=== PATIENT | male | born 1990 | race Caucasian/White ===

== ENCOUNTER 2017-05-14 22:12 | Inpatient (IN) | payer MEDICAID, OTHER ==
[~2017-05-14] VITALS: Ht 165.1 cm; Wt 68.0 kg
[2017-05-14] MEDS ORDERED: morphine 4 MG/ML VIAL IV STA (23:55)
[2017-05-14] MEDS ORDERED: ONDANSETRON 4 MG INJ IV STA (23:55)
[2017-05-15] VITALS (9 sets, daily range): BP systolic 124–224; BP diastolic 89–122; PULSE 98–109; RESP 19; Ht 165.1 cm; Wt 68.0 kg
[2017-05-15] MEDS ORDERED: DIPHENHYDRAMINE 50 MG INJ IV ONE
[2017-05-15 00:04] LABS: BASOPHIL # 0.1 10^3/ul (0.0-0.1); BASOPHILS % 0.4 % (0.0-2.0); EOSINOPHILS # 0.4 10^3/ul (0.0-0.5); EOSINOPHILS % 2.7 % (0.0-7.0); HEMATOCRIT 27.4 % (42.0-52.0); HEMOGLOBIN 8.7 g/dl (14.0-18.0); LYMPHOCYTES # 2.5 10^3/ul (0.8-2.9); LYMPHOCYTES % 18.5 % (15.0-51.0); MEAN CORPUSCULAR HEMOGLOBIN 30.2 pg (29.0-33.0); MEAN CORPUSCULAR HGB CONC 31.8 g/dl (32.0-37.0); MEAN CORPUSCULAR VOLUME 95.1 fl (82.0-101.0); MEAN PLATELET VOLUME 10.4 fl (7.4-10.4); MONOCYTE # 0.9 10^3/ul (0.3-0.9); MONOCYTES % 6.7 % (0.0-11.0); NEUTROPHIL # 9.7 10^3/ul (1.6-7.5); NEUTROPHILS % 71.3 % (39.0-77.0); PLATELET COUNT 174 10^3/UL (140-415); RED BLOOD COUNT 2.88 10^6/ul (4.70-6.10); RED CELL DISTRIBUTION WIDTH 20.4 % (11.5-14.5); WHITE BLOOD COUNT 13.6 10^3/ul (4.8-10.8)
[2017-05-15 00:21] LABS: ALANINE AMINOTRANSFERASE 107 IU/L (13-69); ALBUMIN 3.3 g/dl (3.3-4.9); ALKALINE PHOSPHATASE 124 IU/L (42-121); ANION GAP 20 (8-16); ASPARTATE AMINO TRANSFERASE 42 IU/L (15-46); BILIRUBIN,INDIRECT 0.2 mg/dl (0-1.1); BILIRUBIN,TOTAL 0.2 mg/dl (0.2-1.3); BLOOD UREA NITROGEN 84 mg/dl (7-20); CARBON DIOXIDE 24 mmol/L (21-31); CHLORIDE 98 mmol/L (97-110); CREATININE 11.13 mg/dl (0.61-1.24); GLUCOSE 82 mg/dl (70-220); POTASSIUM 4.9 mmol/L (3.5-5.1); SODIUM 137 mmol/L (135-144); TOTAL PROTEIN 6.3 g/dl (6.1-8.1)
--- NOTE | 2017-05-15 00:37 | RADRPT ---
PROCEDURE: XR Chest. CLINICAL INDICATION: Chest Pain. TECHNIQUE: Single frontal view of the chest was obtained. COMPARISON: None available FINDINGS: The cardiomediastinal silhouette is moderate to severely enlarged.. Pulmonary vasculature is promin ent. There is patchy air space opacities through both lungs.. No signs of pleural fluid or pneumothorax are seen. The osseous structures and soft tissues are unre markable. IMPRESSION: 1. Moderate to severe appearing cardiomegaly, prominent for the patient's age. 2. Pulmonary vascular congestion. 3. Bilateral patchy air space opacities which may reflect a mild to moderate pulmonary edema, or bi lateral infiltrates. RPTAT: HBST .Tay Augustine MD, Date Time Electronically viewed and signed by .Tay Augustine MD, on 05/15/2017 00:36 .T/
[2017-05-15 00:51] LABS: B-TYPE NATRIURETIC PEPTIDE > 175000 PG/ML (0-125)
[2017-05-15 01:36] LABS: TROPONIN-I 0.145 ng/ml (0.00-0.12)
--- NOTE | 2017-05-15 03:44 | ERA ---
ER Documentation Chief Complaint Date/Time DATE: 05/15/17 TIME: 03:36 Chief Complaint BL leg swelling, hd pt, noted talking to himself, unsure when last hd was HPI This is a 26-year-old male bilateral leg swelling. Patient is end-stage renal disease on hemodialysis. He is unsure when his last hemodialysis was. Complains of shortness of breath as well. Shortness breath is mild to moderate in intensity has been going on for the last 2-3 days getting increase in severity correlating with the lower extremity swelling is also complaining of. No nausea no vomiting no fevers no chills. No other current complaints. ROS All systems reviewed and are negative except as per history of present illness. Medications Home Meds No Active Prescriptions or Reported Meds Allergies Allergies: Coded Allergies: clindamycin (Verified Allergy, Unknown, 05/14/17) PMhx/Soc Hx Alcohol Use: No (pt denies) Hx Substance Use: No (pt denies) Hx Tobacco Use: No (pt denies) Smoking Status: Never smoker Physical Exam Vitals Vital Signs Date Time Temp Pulse Resp B/P Pulse Ox O2 Delivery O2 Flow Rate FiO2 05/14/17 22:16 99.0 104 20 174/109 94 Physical Exam Const: [] Head: Atraumatic Eyes: Normal Conjunctiva ENT: Normal External Ears, Nose and Mouth. Neck: Full range of motion..~ No meningismus. Resp: Clear to auscultation bilaterally Cardio: Regular rate and rhythm, no murmurs Abd: Soft, non tender, non distended. Normal bowel sounds Skin: No petechiae or rashes Back: No midline or flank tenderness Ext: No cyanosis, or edema Neur: Awake and alert Psych: Normal Mood and Affect Result Diagram: 05/14/17 2345 05/14/17 2345 Results 24 hrs Laboratory Tests Test 05/14/17 23:45 White Blood Count 13.610^3/ul Red Blood Count 2.8810^6/ul Hemoglobin 8.7g/dl Hematocrit 27.4% Mean Corpuscular Volume 95.1fl Mean Corpuscular Hemoglobin 30.2pg Mean Corpuscular Hemoglobin Concent 31.8g/dl Red Cell Distribution Width 20.4% Platelet Count 82573^3/UL Mean Platelet Volume 10.4fl Neutrophils % 71.3% Lymphocytes % 18.5% Monocytes % 6.7% Eosinophils % 2.7% Basophils % 0.4% Nucleated Red Blood Cells % 0.0/100WBC Neutrophils # 9.710^3/ul Lymphocytes # 2.510^3/ul Monocytes # 0.910^3/ul Eosinophils # 0.410^3/ul Basophils # 0.110^3/ul Nucleated Red Blood Cells # 0.010^3/ul Sodium Level 137mmol/L Potassium Level 4.9mmol/L Chloride Level 98mmol/L Carbon Dioxide Level 24mmol/L Anion Gap 20 Blood Urea Nitrogen 84mg/dl Creatinine 11.13mg/dl Glucose Level 82mg/dl Calcium Level 9.0mg/dl Total Bilirubin 0.2mg/dl Direct Bilirubin 0.00mg/dl Indirect Bilirubin 0.2mg/dl Aspartate Amino Transf (AST/SGOT) 42IU/L Alanine Aminotransferase (ALT/SGPT) 107IU/L Alkaline Phosphatase 124IU/L Troponin I 0.145ng/ml B-Type Natriuretic Peptide > 914142LN/ML Total Protein 6.3g/dl Albumin 3.3g/dl Globulin 3.00g/dl Albumin/Globulin Ratio 1.10 Current Medications Medications (Trade) Dose Ordered Sig/Dexter Route PRN Reason Start Time Stop Time Status Last Admin Dose Admin Morphine Sulfate (morphine) 4 mg ONCE STAT IV 05/14/17 23:55 05/14/17 23:57 DC 05/15/17 00:00 Ondansetron HCl (Zofran Inj) 4 mg ONCE STAT IV 05/14/17 23:55 05/14/17 23:57 DC 05/15/17 00:00 Diphenhydramine HCl (Benadryl) 50 mg ONCE ONCE IV 05/15/17 00:00 05/15/17 00:01 DC 05/15/17 00:00 Procedures/MDM EKG: Rate/Rhythm: [Normal Sinus Rhythm] QRS, ST, T-waves: [No changes consistent w/ acute ischemia] Impression: [No evidence of ischemia or arrhythmia] Chest X-ray 1V Interpreted by me: Soft Tissue: No acute abnormalities Bones: No acute abnormalities Mediastinum/Cardiac Silhouette/Lungs: [No acute abnormalities] Patient's symptoms are concerning for cardiac cause will require inpatient workup and continuous monitoring. Further w/u for ischemia, arrhythmia, PE or dissection will be deferred to the inpatient team. Troponin is mildly positive , however the patient does have severely elevated creatinine making this a likely cause. Accepting Care Team: Current data and ongoing care discussed. Time: 3:30 AM Primary Provider: Hospitalists Consulting: [XOXOXO] Outstanding Data: none Departure Diagnosis: Primary Impression: NSTEMI (non-ST elevated myocardial infarction) Condition: Serious KEZIA RAY May 15, 2017 03:44
[2017-05-15] MEDS ORDERED: NACL 0.9% 3 ML SYG IV SCH (05:00)
[2017-05-15] MEDS ORDERED: ALBUTEROL/IPRATROPIUM (NEB) 3 ML AMP HHN PRN (05:00)
[2017-05-15] MEDS ORDERED: ACETAMINOPHEN 325 MG TAB PO PRN (05:00)
[2017-05-15] MEDS ORDERED: morphine 2 MG INJ IV PRN (05:00)
[2017-05-15] MEDS ORDERED: ONDANSETRON 4 MG INJ IV PRN (05:00)
[2017-05-15] MEDS ORDERED: hydrALAzine 20 MG INJ IV STA (05:20)
[2017-05-15] MEDS ORDERED: hydrALAzine 20 MG INJ ONE (05:26)
[2017-05-15] MEDS ORDERED: hydrALAzine 20 MG INJ IV PRN (05:30)
[2017-05-15 07:17] LABS: BASOPHILS % 0.3 % (0.0-2.0); EOSINOPHILS # 0.4 10^3/ul (0.0-0.5); HEMATOCRIT 26.9 % (42.0-52.0); HEMOGLOBIN 8.5 g/dl (14.0-18.0); LYMPHOCYTES # 2.2 10^3/ul (0.8-2.9); LYMPHOCYTES % 17.6 % (15.0-51.0); MEAN CORPUSCULAR HEMOGLOBIN 29.9 pg (29.0-33.0); MEAN CORPUSCULAR HGB CONC 31.6 g/dl (32.0-37.0); MEAN CORPUSCULAR VOLUME 94.7 fl (82.0-101.0); MEAN PLATELET VOLUME 10.4 fl (7.4-10.4); MONOCYTE # 0.8 10^3/ul (0.3-0.9); MONOCYTES % 6.1 % (0.0-11.0); NEUTROPHIL # 9.1 10^3/ul (1.6-7.5); NEUTROPHILS % 72.5 % (39.0-77.0); PLATELET COUNT 187 10^3/UL (140-415); RED BLOOD COUNT 2.84 10^6/ul (4.70-6.10); RED CELL DISTRIBUTION WIDTH 20.8 % (11.5-14.5); WHITE BLOOD COUNT 12.6 10^3/ul (4.8-10.8)
[2017-05-15 07:35] LABS: ALBUMIN 3.4 g/dl (3.3-4.9); ALBUMIN/GLOBULIN RATIO 1.09; BILIRUBIN,INDIRECT 0.3 mg/dl (0-1.1); BILIRUBIN,TOTAL 0.3 mg/dl (0.2-1.3); CALCIUM 9.1 mg/dl (8.4-10.2); CHOL/HDL RATIO 4.3 RATIO; CREATININE 11.49 mg/dl (0.61-1.24); MAGNESIUM 2.3 mg/dl (1.7-2.5); POTASSIUM 5.3 mmol/L (3.5-5.1); TOTAL PROTEIN 6.5 g/dl (6.1-8.1)
[2017-05-15] MEDS: HEPARIN 5,000 UNIT/0.5 ML VIAL SC SCH ×2 (08:05→21:00)
[2017-05-15] MEDS ORDERED: LORAZEPAM 2 MG INJ IV ONE (08:30)
--- NOTE | 2017-05-15 09:42 | HP ---
Date/Time of Note Date/Time of Note DATE: 05/15/17 TIME: 09:34 Assessment/Plan VTE Prophylaxis VTE Prophylaxis Intervention: SCD's Lines/Catheters IV Catheter Type (from Nrs): Saline Lock Assessment/Plan Assessment/Plan 1. Volume overload state -Patient with history of ESRD on HD. Plan is to place a consult with nephrology for dialysis -Breathing treatments as needed -2D echo 2. ESRD on HD -See #1 3. Positive troponin -Likely demand ischemia, exacerbated by end-stage renal disease -We will trend troponin 4. SIRS -Likely stress reaction -Infectious workup as needed 5. Anemia, likely of chronic disease -Monitor H&H and transfuse as needed -Check for iron deficiency HPI/ROS Admit Date/Time Admit Date/Time Hx of Present Illness This is a 26-year-old male with a history of hypertension and end-stage renal disease on dialysis who presents to the emergency department complaining of lower extremity swelling, cough and shortness of breath. Patient appears disheveled and is not fully cooperative when answering questions. He stated that he does not remember the last time he had dialysis. But he reported being admitted to an outside hospital and is being discharged a few days ago. When he presented to the ER, BP was 175/109 with a heart rate of 104. Labs shows, WBC 13.6, hemoglobin 8.7, BUN 84, creatinine 11, BNP 175,000. First troponin is 0.145. Chest x-ray showed Moderate to severe appearing cardiomegaly , prominent for the patient's age, Pulmonary vascular congestion and Bilateral patchy air space opacities which may reflect a mild to moderate pulmonary edema , or bilateral infiltrates. PMH/Family/Social Social History Smoking Status: Never smoker Exam/Review of Systems Vital Signs Vitals Vital Signs Date Time Temp Pulse Resp B/P Pulse Ox O2 Delivery O2 Flow Rate FiO2 05/15/17 09:03 112 20 176/81 98 Mask 4.0 05/14/17 22:16 99.0 Labs Result Diagram: 05/15/1744 05/15/17643 Medications Medications Current Medications Ondansetron HCl (Zofran Inj) 4 mg Q6H PRN IV NAUSEA AND/OR VOMITING; Start at 05:00 Acetaminophen (Tylenol Tab) 650 mg Q6H PRN PO PAIN LEVEL 1-3 OR FEVER; Start at 05:00 Morphine Sulfate (morphine) 2 mg Q4H PRN IV PAIN LEVEL 7-10 Last administered on 05/15/17t 05:28; Admin Dose 2 MG; Start 05/15/17 at 05:00 Heparin Sodium (Porcine) (Heparin (5000 Units/0.5 ml)) 5,000 unit Q12 SC ; Start 05/15/17 at 09:00 Hydralazine HCl (Apresoline) 10 mg Q4 PRN IV ELEVATED SYSTOLIC BP; Start at 05:30 KEZIA NICHOLAS MD May 15, 2017 09:41
[2017-05-15] MEDS ORDERED: AMLODIPINE 10 MG TAB PO SCH (10:00)
[2017-05-15 11:42] LABS: CK-MB 4.3 ng/ml (0.0-2.4); TROPONIN-I 0.145 ng/ml (0.00-0.12)
[2017-05-15] MEDS: METOPROLOL 25 MG TAB PO SCH ×2 (11:53→21:30)
[2017-05-15 16:08] LABS: CK-MB 4.1 ng/ml (0.0-2.4); TROPONIN-I 0.133 ng/ml (0.00-0.12)
--- NOTE | 2017-05-15 18:57 | PDOCDIS ---
Discharge Instructions CONDITION Patient Condition: Good HOME CARE INSTRUCTIONS: Special Diet: Renal ACTIVITY: Activity Restrictions: No Restrictions FOLLOW UP/APPOINTMENTS Follow-up Plan F/U WITH YOUR PCP IN 1-2 WEEKS, F/U WITH YOUR HD CENTER SCHEDULED JACK HARDIN May 15, 2017 18:57
--- NOTE | 2017-05-15 19:12 | DS ---
Date/Time of Note Date/Time of Note DATE: 05/15/17 TIME: 19:08 Discharge Summary Admission/Discharge Info Admit Date/Time May 15, 2017 at 02:34 Discharge Date/Time May 15, 2017 Discharge Diagnosis 1. Volume overload state -Resolved with HD 2. ESRD on HD -Continue HD as scheduled 3. Positive troponin -Likely demand ischemia, exacerbated by end-stage renal disease, false positive -We will trend troponin 4. SIRS -Likely stress reaction 5. Anemia secondary to end-stage renal disease -Follow-up with [employer] Patient Condition: Good Hospital Course Patient is a 26-year-old male with a history of hypertension and end-stage renal disease on dialysis who presents to the emergency department complaining of lower extremity swelling, cough and shortness of breath. Patient has been noncompliant with his hemodialysis center, in the ED BP was elevated and chest x -ray showed pulmonary edema. Troponins are mildly elevated felt to be a false positive secondary to his renal disease and mild demand, white count also slightly elevated but patient has no evidence of infection is likely reactive. Patient did receive hemodialysis while in house, his shortness of breath and fluid overload did resolve, and the discharge patient's vitals labs and physical exam are stable and no further acute complaints and questions are answered. Home Meds No Active Prescriptions or Reported Meds Follow-up Plan F/U WITH YOUR PCP IN 1-2 WEEKS, F/U WITH YOUR HD CENTER SCHEDULED Primary Care Provider Care Physician No Primary Time spent on discharge: > 30 minutes JACK HARDIN May 15, 2017 19:12
--- NOTE | 2017-05-15 19:25 | CONS ---
Date/Time of Note Date/Time of Note DATE: 05/15/17 TIME: 19:23 Assessment/Plan Assessment/Plan Additional Assessment/Plan 26 yo male with 1) Volume Overload 2) HTN, Chronic 3) ESRD on HD 4) Anemia, Chronic, CKD 5) Hyperkalemia Consultation Date/Type/Reason Admit Date/Time Date of Consultation: May 15, 2017 Type of Consultation: Renal Reason for Consultation ESRD Referring Provider: JACK HARDIN Social History Smoking Status: Never smoker Exam/Review of Systems Vital Signs Vitals Vital Signs Date Time Temp Pulse Resp B/P Pulse Ox O2 Delivery O2 Flow Rate FiO2 05/15/17 18:50 100 20 05/15/17 16:15 97.5 172/122 91 05/15/17 13:45 Room Air 05/15/17 11:55 4.0 Exam Constitutional: alert, No distress ENMT: mucosa pink and moist Neck: No jvd Respiratory: clear to auscultation, No diminished breath sounds, No labored breathing Cardiovascular: regular rate and rhythm, No edema Gastrointestinal: soft, No rebound or guarding Neurological: No lethargic Skin: nl turgor, No diaphoresis Results Result Diagram: 05/15/17 0644 05/15/17 0644 Results 24 hrs Laboratory Tests Test 05/14/17 23:45 05/15/17 06:44 05/15/17 10:44 05/15/17 15:23 White Blood Count 13.6 H 12.6 H Red Blood Count 2.88 L 2.84 L Hemoglobin 8.7 L 8.5 L Hematocrit 27.4 L 26.9 L Mean Corpuscular Volume 95.1 94.7 Mean Corpuscular Hemoglobin 30.2 29.9 Mean Corpuscular Hemoglobin Concent 31.8 L 31.6 L Red Cell Distribution Width 20.4 H 20.8 H Platelet Count 174 187 Mean Platelet Volume 10.4 10.4 Neutrophils % 71.3 72.5 Lymphocytes % 18.5 17.6 Monocytes % 6.7 6.1 Eosinophils % 2.7 3.0 Basophils % 0.4 0.3 Nucleated Red Blood Cells % 0.0 0.0 Neutrophils # 9.7 H 9.1 H Lymphocytes # 2.5 2.2 Monocytes # 0.9 0.8 Eosinophils # 0.4 0.4 Basophils # 0.1 0.0 Nucleated Red Blood Cells # 0.0 0.0 Sodium Level 137 136 Potassium Level 4.9 5.3 H Chloride Level 98 99 Carbon Dioxide Level 24 21 Anion Gap 20 H 21 H Blood Urea Nitrogen 84 H 86 H Creatinine 11.13 H 11.49 H Glucose Level 82 85 Calcium Level 9.0 9.1 Total Bilirubin 0.2 0.3 Direct Bilirubin 0.00 0.00 Indirect Bilirubin 0.2 0.3 Aspartate Amino Transf (AST/SGOT) 42 49 H Alanine Aminotransferase (ALT/SGPT) 107 H 111 H Alkaline Phosphatase 124 H 121 Troponin I 0.145 *H 0.145 *H 0.133 *H B-Type Natriuretic Peptide > 117062 H Total Protein 6.3 6.5 Albumin 3.3 3.4 Globulin 3.00 3.10 Albumin/Globulin Ratio 1.10 1.09 Hemoglobin A1c 4.8 Magnesium Level 2.3 Triglycerides Level 166 H Cholesterol Level 112 LDL Cholesterol, Calculated 53 HDL Cholesterol 26 L Cholesterol/HDL Ratio 4.3 Creatine Kinase 93 85 Creatine Kinase Index 4.6 4.8 Creatinine Kinase MB (Mass) 4.30 H 4.10 H Imaging Free Text/Dictation PROCEDURE: XR Chest. CLINICAL INDICATION: Chest Pain. TECHNIQUE: Single frontal view of the chest was obtained. COMPARISON: None available FINDINGS: The cardiomediastinal silhouette is moderate to severely enlarged.. Pulmonary vasculature is prominent. There is patchy air space opacities through both lungs.. No signs of pleural fluid or pneumothorax are seen. The osseous structures and soft tissues are unremarkable. IMPRESSION: 1. Moderate to severe appearing cardiomegaly, prominent for the patient's age. 2. Pulmonary vascular congestion. 3. Bilateral patchy air space opacities which may reflect a mild to moderate pulmonary edema, or bilateral infiltrates. RPTAT: HBST .Tay Augustine MD, MD Date Time Electronically viewed and signed by .Tay Augustine MD, MD on 05/15/2017 00:36 Medications Medications Current Medications Ondansetron HCl (Zofran Inj) 4 mg Q6H PRN IV NAUSEA AND/OR VOMITING; Start at 05:00 Acetaminophen (Tylenol Tab) 650 mg Q6H PRN PO PAIN LEVEL 1-3 OR FEVER; Start at 05:00 Morphine Sulfate (morphine) 2 mg Q4H PRN IV PAIN LEVEL 7-10 Last administered on 05/15/17 05:28; Admin Dose 2 MG; Start 05/15/17 at 05:00 Heparin Sodium (Porcine) (Heparin (5000 Units/0.5 ml)) 5,000 unit Q12 SC ; Start 05/15/17 at 09:00 Hydralazine HCl (Apresoline) 10 mg Q4 PRN IV ELEVATED SYSTOLIC BP; Start at 05:30 Metoprolol Tartrate (Lopressor) 25 mg Q12 PO Last administered on 05/15/17 11: 53; Admin Dose 25 MG; Start 05/15/17 at 10:00 Amlodipine Besylate (Norvasc) 10 mg DAILY PO Last administered on 05/15/17 11: 54; Admin Dose 10 MG; Start 05/15/17 at 10:00 Influenza Virus Vaccine (Fluzone) 0.5 ml ONCE ONCE IM* ; Start 05/15/17 at 22:00 ; Stop 05/15/17 at 22:01 KATHY FLETCHER MD May 15, 2017 19:25
[2017-05-15] MEDS ORDERED: INFLUENZA VIRUS VACCINE 0.5 ML SYG IM* ONE (22:00)
== END 2017-05-15 21:15 | disposition home or self-care (01) | DRG 640 ==
LOC: E/R 22:12 → MS4 05-15 02:34
PROVIDERS: ADMIT Internal Medicine; ATTEND Internal Medicine
PROC: 5A1D00Z (ICD-10-PCS; principal; 2017-05-15)
DX: E87.79 Other fluid overload (principal); N18.6 End stage renal disease; I12.0 Hypertensive chronic kidney disease with stage 5 chronic kidney disease or end stage renal disease; R65.10 Systemic inflammatory response syndrome (SIRS) of non-infectious origin without acute organ dysfunction; Z99.2 Dependence on renal dialysis; Z91.15 Patient's noncompliance with renal dialysis; D63.8 Anemia in other chronic diseases classified elsewhere; E87.5 Hyperkalemia
CPT/HCPCS: 36415; 71010; 80053; 80061; 82550; 82553; 83036; 83735; 83880; 84484; 85025; 90686; 90935; 93005; 96374; 96375; J0360; J1200; J2060; J2270; J2405

== ENCOUNTER 2017-05-16 13:26 | Emergency (ER) | payer MEDICAID ==
[~2017-05-16] VITALS: Ht 175.3 cm; Wt 65.0 kg
[2017-05-16 13:29] VITALS: Ht 175.3 cm; Wt 65.0 kg
--- NOTE | 2017-05-16 14:44 | ERA ---
ER Documentation Chief Complaint Date/Time DATE: 05/16/17 TIME: 14:44 Chief Complaint nausea and vomiting this morning, hx renal failure, homeless. HPI The patient is a 26-year-old male, presenting to the ER because of vomiting, diarrhea for 1 day. He was admitted yesterday for acute fluid overload and only had half an hour of dialysis out of his regular 3 hours. He denied dyspnea , chest pain, abdominal pain, denies hematemesis, hematochezia. He is homeless , does not smoke, does not drink Past medical history: Chronic kidney disease on hemodialysis 3 times a week, hypertension, asthma Past surgical history: Left upper extremity AV fistula ROS All systems reviewed and are negative except as per history of present illness. Medications Home Meds No Active Prescriptions or Reported Meds Allergies Allergies: Coded Allergies: clindamycin (Verified Allergy, Unknown, 05/16/17) PMhx/Soc History of Surgery: Yes (fistula placement) Anesthesia Reaction: No Hx Neurological Disorder: No Hx Respiratory Disorders: No Hx Cardiac Disorders: No Hx Psychiatric Problems: No Hx Miscellaneous Medical Probl: No Hx Alcohol Use: No Hx Substance Use: No Hx Tobacco Use: No Physical Exam Vitals Vital Signs Date Time Temp Pulse Resp B/P Pulse Ox O2 Delivery O2 Flow Rate FiO2 05/16/17 16:00 98.5 79 18 162/98 97 Room Air 05/16/17 13:29 98.1 88 16 168/100 98 Physical Exam Const: No acute distress. Head: Atraumatic. Eyes: Normal Conjunctiva. ENT: Normal External Ears, Nose and Mouth. Neck: Full range of motion. No meningismus. Resp: Clear to auscultation bilaterally. Cardio: Regular rate and rhythm. Abd: Soft, non distended, normal bowel sounds, non tender. Skin: No petechiae or rashes. Back: No midline or flank tenderness. Ext: No cyanosis, or edema. Neur: Awake and alert. No focal deficit Psych: Normal Mood and Affect. Result Diagram: 05/16/17 1630 05/16/17 1630 Results 24 hrs Laboratory Tests Test 05/16/17 16:30 White Blood Count 10.610^3/ul Red Blood Count 2.7610^6/ul Hemoglobin 8.4g/dl Hematocrit 26.3% Mean Corpuscular Volume 95.3fl Mean Corpuscular Hemoglobin 30.4pg Mean Corpuscular Hemoglobin Concent 31.9g/dl Red Cell Distribution Width 21.1% Platelet Count 70638^3/UL Mean Platelet Volume 10.0fl Neutrophils % 71.2% Lymphocytes % 19.9% Monocytes % 6.7% Eosinophils % 1.2% Basophils % 0.5% Nucleated Red Blood Cells % 0.0/100WBC Neutrophils # 7.610^3/ul Lymphocytes # 2.110^3/ul Monocytes # 0.710^3/ul Eosinophils # 0.110^3/ul Basophils # 0.110^3/ul Nucleated Red Blood Cells # 0.010^3/ul Prothrombin Time 15.4Sec Prothrombin Time Ratio 1.2 INR International Normalized Ratio 1.21 Activated Partial Thromboplast Time 33.2Sec Sodium Level 133mmol/L Potassium Level 6.4mmol/L Chloride Level 98mmol/L Carbon Dioxide Level 20mmol/L Anion Gap 21 Blood Urea Nitrogen 92mg/dl Creatinine 11.17mg/dl Glucose Level 92mg/dl Calcium Level 8.8mg/dl Phosphorus Level 10.5mg/dl Magnesium Level 2.4mg/dl Total Bilirubin 0.4mg/dl Direct Bilirubin 0.00mg/dl Indirect Bilirubin 0.4mg/dl Aspartate Amino Transf (AST/SGOT) 49IU/L Alanine Aminotransferase (ALT/SGPT) 101IU/L Alkaline Phosphatase 116IU/L Troponin I 0.137ng/ml Total Protein 6.1g/dl Albumin 3.3g/dl Globulin 2.80g/dl Albumin/Globulin Ratio 1.17 Hepatitis B Surface Antigen NEGATIVE Hepatitis B Core Total Antibody NEGATIVE Hepatitis C Antibody REACTIVE Current Medications Medications (Trade) Dose Ordered Sig/Dexter Route PRN Reason Start Time Stop Time Status Last Admin Dose Admin Ondansetron HCl (Zofran Inj) 4 mg ONCE STAT IV 05/16/17 14:53 05/16/17 14:54 Cancel Ondansetron HCl (Zofran Inj) 4 mg ONCE STAT IV 05/16/17 14:53 05/16/17 14:58 DC Loperamide HCl (Imodium Cap) 4 mg ONCE ONCE PO 05/16/17 15:00 05/16/17 15:01 DC Ondansetron HCl (Zofran Odt) 4 mg ONCE STAT ODT 05/16/17 16:39 05/16/17 16:48 DC Procedures/MDM [place] [address] Radiology Main Line: [phone] DIAGNOSTIC IMAGING REPORT Patient: DEB LEA : 1990 Age: 26 Sex: M MR #: [id number] DOS: 05/16/17 1453 Ordering MD: FE NEWMAN MD Location: E/R Room/Bed: PROCEDURE: Chest x-ray CLINICAL INDICATION: Shortness of breath TECHNIQUE: Chest single view COMPARISON: 05/14/2017 FINDINGS: There is stable moderate cardiomegaly and ongoing moderate degree CHF. The lungs are clear. The costophrenic angles are sharp. The visualized bony thorax is unremarkable. IMPRESSION: 1. Stable moderate cardiomegaly with ongoing moderate degree CHF RPTAT: HH .Pablo Flores MD, MD Date Time Electronically viewed and signed by .Pablo Flores MD, MD on 05/16/2017 15:38 .W/ CC: FE NEWMAN MD EKG: Read by emergency physician Rate/Rhythm: Sinus tachycardia 103 beats/min QRS, ST, T-waves: No ST elevation, no T inversion, Right fisher axis Impression: Abnormal EKG MEDICAL MAKING DECISION: The patient was treated with Zofran ODT for nausea and Imodium 4 mg p.o. for diarrhea. He has contact precaution for hepatitis due to vomiting, diarrhea, homelessness. The patient is a 26-year-old male, presenting with acute vomiting and diarrhea, concerning for acute hepatitis, acute fluid overload, acute hyperkalemia, acute troponin elevation, acute hypophosphatemia. The differential diagnoses considered include but are not limited to asthma, COPD, pneumonia, pulmonary embolus, pleural effusion, congestive heart failure, acute hepatitis, non-STEMI. He eloped from the emergency department prior to having the results of the labs We have tried to contact him however unsuccessful because there were no phone number or address I did discuss the patient abnormal lab and the patient condition with the on- duty physician Dr Gutierrez in case that he come back by ambulance Departure Diagnosis: Primary Impression: Vomiting and diarrhea Additional Impressions: Fluid overload Hyperkalemia Troponin level elevated Hyperphosphatemia Anemia Condition: Critical Additional Instructions: The patient eloped from the emergency department FE NEWMAN MD May 16, 2017 14:44
[2017-05-16] MEDS ORDERED: ONDANSETRON 4 MG INJ IV STA ×2 (14:53)
[2017-05-16] MEDS ORDERED: LOPERAMIDE 2 MG CAP PO ONE (15:00)
--- NOTE | 2017-05-16 15:38 | RADRPT ---
PROCEDURE: Chest x-ray CLINICAL INDICATION: Shortness of breath TECHNIQUE: Chest single view COMPARISON: 05/14/2017 FINDINGS: There is stable moderate cardiomegaly and ongoing moderate degree CHF. The lungs are clear. The cos tophrenic angles are sharp. The visualized bony thorax is unremarkable. IMPRESSION: 1. Stable moderate cardiomegaly with ongoing moderate degree CHF RPTAT: HH .Pablo Flores MD, Date Time Electronically viewed and signed by .Pablo Flores MD, on 05/16/2017 15:38 .W/
[2017-05-16 16:00] VITALS: BP 162/98; PULSE 79; RESP 18; TEMP 98.5
[2017-05-16] MEDS ORDERED: ONDANSETRON (ODT) 4 MG TAB ODT STA (16:39)
[2017-05-16 16:46] LABS: HAAIG REFLEX REFLEX FILED
[2017-05-16 16:50] LABS: BASOPHIL # 0.1 10^3/ul (0.0-0.1); BASOPHILS % 0.5 % (0.0-2.0); EOSINOPHILS # 0.1 10^3/ul (0.0-0.5); EOSINOPHILS % 1.2 % (0.0-7.0); HEMATOCRIT 26.3 % (42.0-52.0); HEMOGLOBIN 8.4 g/dl (14.0-18.0); LYMPHOCYTES # 2.1 10^3/ul (0.8-2.9); LYMPHOCYTES % 19.9 % (15.0-51.0); MEAN CORPUSCULAR HEMOGLOBIN 30.4 pg (29.0-33.0); MEAN CORPUSCULAR HGB CONC 31.9 g/dl (32.0-37.0); MEAN CORPUSCULAR VOLUME 95.3 fl (82.0-101.0); MONOCYTE # 0.7 10^3/ul (0.3-0.9); MONOCYTES % 6.7 % (0.0-11.0); NEUTROPHIL # 7.6 10^3/ul (1.6-7.5); NEUTROPHILS % 71.2 % (39.0-77.0); PLATELET COUNT 197 10^3/UL (140-415); RED BLOOD COUNT 2.76 10^6/ul (4.70-6.10); RED CELL DISTRIBUTION WIDTH 21.1 % (11.5-14.5); WHITE BLOOD COUNT 10.6 10^3/ul (4.8-10.8)
[2017-05-16 17:06] LABS: INR 1.21; PROTIME 15.4 Sec (12.2-14.2); PT RATIO 1.2
[2017-05-16 17:07] LABS: PARTIAL THROMBOPLASTIN TIME 33.2 Sec (25.0-35.0)
[2017-05-16 17:09] LABS: ALANINE AMINOTRANSFERASE 101 IU/L (13-69); ALBUMIN 3.3 g/dl (3.3-4.9); ALBUMIN/GLOBULIN RATIO 1.17; ALKALINE PHOSPHATASE 116 IU/L (42-121); ANION GAP 21 (8-16); ASPARTATE AMINO TRANSFERASE 49 IU/L (15-46); BILIRUBIN,INDIRECT 0.4 mg/dl (0-1.1); BILIRUBIN,TOTAL 0.4 mg/dl (0.2-1.3); BLOOD UREA NITROGEN 92 mg/dl (7-20); CALCIUM 8.8 mg/dl (8.4-10.2); CARBON DIOXIDE 20 mmol/L (21-31); CHLORIDE 98 mmol/L (97-110); CREATININE 11.17 mg/dl (0.61-1.24); GLUCOSE 92 mg/dl (70-220); MAGNESIUM 2.4 mg/dl (1.7-2.5); PHOSPHORUS 10.5 mg/dl (2.5-4.9); SODIUM 133 mmol/L (135-144); TOTAL PROTEIN 6.1 g/dl (6.1-8.1)
[2017-05-16 17:16] LABS: POTASSIUM 6.4 mmol/L (3.5-5.1)
[2017-05-16 17:58] LABS: HEPATITIS B CORE ANTIBODY NEGATIVE (NEGATIVE)
[2017-05-16 18:05] LABS: TROPONIN-I 0.137 ng/ml (0.00-0.12)
== END 2017-05-16 18:05 | disposition left against medical advice (07) ==
LOC: E/R 13:26
DX: E87.70 Fluid overload, unspecified (principal); E87.5 Hyperkalemia; E83.39 Other disorders of phosphorus metabolism; D64.9 Anemia, unspecified; I12.9 Hypertensive chronic kidney disease with stage 1 through stage 4 chronic kidney disease, or unspecified chronic kidney disease; N18.9 Chronic kidney disease, unspecified; J45.909 Unspecified asthma, uncomplicated; Z99.2 Dependence on renal dialysis
CPT/HCPCS: 71010; 80053; 83735; 84100; 84484; 85025; 85610; 85730; 86704; 86709; 86803; 87340; 93005; Z7502; Z7610